=== PATIENT | female | born 1945 | race Caucasian/White ===

== ENCOUNTER → 2016-07-06 | Outpatient (CLI) | payer OTHER ==
[~2016-07-06] MED LIST: ALBUTEROL17 G1 IH; Atarax,Vistaril PO; Coumadin,Jantoven PO; Cymbalta PO; Glucophage PO; Levothroid,Synthroid PO; NEURONTIN100 MG PO; PHENERGAN12.5 M1 PO; PREMARIN0.625 MG PO; Percocet 5/325,Endoc PO; Protonix PO; SEROQUEL50 MG PO; ULTRAM50 MG PO; Zestril,Prinivil PO; predniSONE PO
== END | disposition home or self-care (01) ==
LOC: NUC 06-30 09:00
DX: M25.561 Pain in right knee (principal); Z96.651 Presence of right artificial knee joint
CPT/HCPCS: 78315; A9503

== ENCOUNTER 2017-02-10 21:30 | Inpatient (IN) | payer OTHER ==
[~2017-02-10] VITALS: Ht 167.6 cm; Wt 97.2 kg
[~2017-02-10 21:30] MED LIST changes: +CYMBALTA60 MG PO; +ESTRADIOL0.5 MG PO; +LAMICTAL100 MG PO; +LASIX20 MG PO; +LEVOTHYROXINE150 MCG PO; +LISINOPRIL5 MG PO; +MEGA BIOTIN10000 MCG PO; +MULTIVITAMIN1 EAC2 PO; +POTASSIUM-9999 MG PO; +PREDNISONE20 MG PO; +REQUIP2 MG PO; +TRAZODONE HCL100 MG PO; +TYLENOL EXTRA500 MG PO; +XELJANZ XR11 MG PO
[2017-02-11 11:15] VITALS: BP 128/73
[2017-02-11 11:55] LABS: POINT-OF-CARE METER ID UU14174212
[2017-02-11 15:14] LABS: POINT-OF-CARE METER ID UU13113675; POINT-OF-CARE USER ID 515036437
[2017-02-11 16:21] VITALS: BP 114/65
[2017-02-11 16:44] VITALS: BP 114/65
[2017-02-11 20:08] VITALS: BP 116/68
[2017-02-11 23:20] VITALS: BP 131/86
[2017-02-12 03:58] VITALS: BP 132/60
[2017-02-12 08:10] VITALS: BP 133/64
[2017-02-12] MEDS ORDERED: ASPIRIN EC325 MG PO (08:26)
[2017-02-12] MEDS ORDERED: HYDROCODON-ACE1 EAC7 PO (08:27)
[2017-02-12 11:39] VITALS: BP 141/66
== END 2017-02-12 13:02 | disposition home or self-care (01) | DRG 483 ==
LOC: ENRESERV 21:30 → 2SOUTH 02-11 10:11 → 3EAST 02-11 10:36 → 2SOUTH 02-11 12:25 → ENRESERV 02-11 14:47 → 3EAST 02-11 16:09
PROVIDERS: Orthopaedic Surgery
PROC: 0RRJ00Z Replacement of Right Shoulder Joint with Reverse Ball and Socket Synthetic Substitute, Open Approach (ICD-10-PCS; principal; 2017-02-11)
DX: M19.011 Primary osteoarthritis, right shoulder (principal); F33.9 Major depressive disorder, recurrent, unspecified; E11.9 Type 2 diabetes mellitus without complications; I10 Essential (primary) hypertension; J45.909 Unspecified asthma, uncomplicated; M06.9 Rheumatoid arthritis, unspecified; M75.111 Incomplete rotator cuff tear or rupture of right shoulder, not specified as traumatic; G47.30 Sleep apnea, unspecified; K21.9 Gastro-esophageal reflux disease without esophagitis; E78.5 Hyperlipidemia, unspecified; E03.9 Hypothyroidism, unspecified; E66.9 Obesity, unspecified; Z68.34 Body mass index [BMI] 34.0-34.9, adult; Z87.891 Personal history of nicotine dependence; Z88.5 Allergy status to narcotic agent; Z88.2 Allergy status to sulfonamides; Z80.8 Family history of malignant neoplasm of other organs or systems
CPT/HCPCS: 82948; 94799; C1713; J0131; J0690; J1100; J1170; J2250; J2405; J2765; J2795; J3010; J7030; J7050; J7512